=== PATIENT | female | born 1990 | race Caucasian/White ===

== ENCOUNTER → 2024-04-29 | Outpatient (CLI) | payer OTHER ==
--- NOTE | 2024-04-29 11:10 | USB ---
Reason for Exam: Clinical finding. Patient History: Menarche at age 9. First Full-Term at age 20. Currently using Hormonal Contraceptives, for 17 years. Maternal grandmother had breast cancer. Maternal aunt had breast cancer. Risk Values: Nelia 5 year model risk: 0.3%. NCI Lifetime model risk: 10.1%. Technique: Method: Targeted. Doppler: Color. Patient Position: Supine. Findings: The area of palpable concern of the left breast, the axilla of the left breast and the retroareolar of the left breast were scanned. No solid or cystic masses are identified. Mildly prominent left axillary lymph nodes could be reactive in nature. 3 month follow-up ultrasound is recommended.. Overall Assessment: Probably benign, BI-RAD 3 Management: Diagnostic Breast Ultrasound of the left breast in 3 months. A clinical breast exam by your physician is recommended on an annual basis and results should be correlated with mammographic findings. This exam should not preclude additional follow-up of suspicious palpable abnormalities. Results were given to the patient verbally at the time of exam. Electronically signed and approved by: Norbert Alejandra M.D. Radiologis
--- NOTE | 2024-04-30 08:53 | MM ---
Reason for Exam: Clinical finding. Baseline mammogram. Indicated Problems: Lump or thickening of the left side for 3 Week(s). Patient History: Menarche at age 9. First Full-Term at age 20. Currently using Hormonal Contraceptives, for 17 years. Maternal grandmother had breast cancer. Maternal aunt had breast cancer. Last menstrual period: 04/19/2024 Risk Values: Nelia 5 year model risk: 0.3%. NCI Lifetime model risk: 10.1%. Prior Study Comparison: Patient's first Mammogram. No prior studies available for comparison. Tissue Density: The breasts are extremely dense, which lowers the sensitivity of mammography. Findings: Analyzed By CAD. No distinct mass at the site of clinical concern left breast. Ultrasound is recommended for further evaluation. No discrete masses within either breast. No suspicious microcalcifications. Overall Assessment: Incomplete: need additional imaging evaluation, BI-RAD 0 Management: Diagnostic Breast Ultrasound of the left breast. Results were given to the patient verbally at the time of exam. Patient should continue monthly self-breast exams. A clinical breast exam by your physician is recommended on an annual basis. This exam should not preclude additional follow-up of suspicious palpable abnormalities. Note on Nelia scores and lifetime risk: 1. A Nelia score greater than 3% is considered moderate risk. If this is the case, consider specialist referral to assess eligibility for a risk reducing agent. 2. If overall lifetime risk for the development of breast cancer is 20% or higher, the patient may qualify for future screening with alternating mammogram and breast MRI. Electronically signed and approved by: Norbert Alejandra M.D. Radiologis
== END | disposition home or self-care (01) ==
LOC: RADMAMWWP 10:18
PROVIDERS: ATTEND Internal Medicine Geriatric Medicine
DX: N63.0 Unspecified lump in unspecified breast
CPT/HCPCS: 77062; 77066

== ENCOUNTER → 2024-07-29 | Outpatient (CLI) | payer SELFPAY ==
--- NOTE | 2024-07-29 15:06 | USB ---
Reason for Exam: Follow-up at short interval from prior study. Patient History: Menarche at age 9. First Full-Term at age 20. Currently using Hormonal Contraceptives, for 17 years. Maternal grandmother had breast cancer. Maternal aunt had breast cancer. Risk Values: Nelia 5 year model risk: 0.3%. NCI Lifetime model risk: 10.1%. Technique: Method: Targeted. Prior Study Comparison: 04/29/2024 Bilateral MG 3D diag mammo w/cad [facility], [facility]. Findings: The area of palpable concern of the left breast, the axilla of the left breast and the retroareolar of the left breast were scanned. Electronically signed and approved by: Job Caldwell D.O. Radiologis
== END | disposition home or self-care (01) ==
LOC: RADUSWWP 09:26
PROVIDERS: ATTEND Internal Medicine Geriatric Medicine
DX: R92.8 Other abnormal and inconclusive findings on diagnostic imaging of breast (principal); Z80.3 Family history of malignant neoplasm of breast